=== PATIENT | female | born 1990 | race African-American/Black ===

== ENCOUNTER 2022-08-23 16:40 | Emergency (ER) | payer BC, MEDICAID ==
[~2022-08-23] VITALS: Ht 154.9 cm; Wt 117.9 kg
[2022-08-23 16:57] VITALS: BP 120/60
[2022-08-23] MEDS ORDERED: CYCL10TA9 PO (17:17)
[2022-08-23] MEDS ORDERED: NAPR-1009 PO (17:17)
[2022-08-23] MEDS ORDERED: KETOROLAC TROMETHAMINE INJ 30 MG/ML VIAL IM ONE (17:30)
[2022-08-23] MEDS ORDERED: KETOROLAC TROMETHAMINE INJ 30 MG/ML VIAL ONE (17:53)
--- NOTE | 2022-08-23 17:59 | NUR ---
Patient discharged to home in stable condition. Written and verbal after care instructions given. Patient verbalizes understanding of instruction.
== END 2022-08-23 17:59 | disposition home or self-care (01) ==
LOC: ER 16:43
DX: S16.1XXA Strain of muscle, fascia and tendon at neck level, initial encounter (principal); E66.01 Morbid (severe) obesity due to excess calories; Z79.899 Other long term (current) drug therapy; Z68.42 Body mass index [BMI] 45.0-49.9, adult; Y04.8XXA Assault by other bodily force, initial encounter; Y93.89 Activity, other specified; Y92.89 Other specified places as the place of occurrence of the external cause; Y99.8 Other external cause status
CPT/HCPCS: 99283; 96372; J1885